=== PATIENT | male | born 1965 | race Caucasian/White ===

== ENCOUNTER → 2018-06-17 | Emergency (ER) | payer OTHER ==
[~2018-06-17] MED LIST: CADUET 10 MG/101 TAB; NABUMETONE500 MG PO; PERCOCET 5/3251 TAB PO
== END | disposition left against medical advice (07) ==
LOC: ER 18:51
DX: Z53.20 Procedure and treatment not carried out because of patient's decision for unspecified reasons (principal)

== ENCOUNTER 2019-03-08 14:16 | Outpatient (CLI) | payer OTHER | END 2019-03-08 14:25 | disposition home or self-care (01) | LOC: RAD 14:16 | DX: M25.561 Pain in right knee (principal); M25.562 Pain in left knee ==

== ENCOUNTER 2019-03-09 13:23 | Outpatient (CLI) | payer OTHER | END 2019-03-09 14:51 | disposition home or self-care (01) | LOC: RAD 13:23 | DX: R07.89 Other chest pain (principal) ==

== ENCOUNTER → 2019-03-17 12:03 | Outpatient (CLI) | payer OTHER | END | disposition home or self-care (01) | LOC: EKG 12:03 | DX: I10 Essential (primary) hypertension (principal) ==

== ENCOUNTER → 2021-03-18 | Emergency (ER) | payer OTHER ==
[~2021-03-18] VITALS: Ht 167.6 cm; Wt 72.6 kg
[~2021-03-18] MED LIST changes: +DIOVAN160 M1; +JANUVIA100 MG; +VYTORIN 10-401 EACH
== END | disposition home or self-care (01) ==
LOC: ER 17:45
DX: M79.672 Pain in left foot (principal)

== ENCOUNTER 2021-06-20 05:50 | Day surgery (SDC) | payer OTHER ==
[~2021-06-20 05:50] MED LIST changes: +NASAL MIST126 ML; +OMEPRAZOLE40 MG PO; +VALSARTAN160 MG PO
[2021-06-20] MEDS ORDERED: ULTRAM50 MG PO (09:52)
[2021-06-20] MEDS ORDERED: NEURONTIN600 M1 PO (09:53)
[2021-06-20] MEDS ORDERED: POLY119PG PO (09:53)
[2021-06-20] MEDS ORDERED: SURFAK240 M1 PO (09:53)
== END 2021-06-20 16:20 | disposition home or self-care (01) ==
LOC: CIR.AMB 05:50
PROVIDERS: ATTEND Surgery
DX: K40.20 Bilateral inguinal hernia, without obstruction or gangrene, not specified as recurrent (principal); K42.9 Umbilical hernia without obstruction or gangrene; Z20.822 Contact with and (suspected) exposure to COVID-19

== ENCOUNTER 2021-07-08 11:19 | Emergency (ER) | payer OTHER ==
[~2021-07-08] VITALS: Ht 167.6 cm; Wt 72.6 kg
[~2021-07-08 11:19] MED LIST changes: +NEURONTIN600 M1 PO; +POLY119PG PO; +SURFAK240 M1 PO; +ULTRAM50 MG PO
[2021-07-08] MEDS ORDERED: PYRIDIUM DS200 MG PO (16:12)
== END 2021-07-08 16:22 ==
LOC: ER 11:19
DX: N30.80 Other cystitis without hematuria (principal); R10.2 Pelvic and perineal pain

== ENCOUNTER 2021-10-12 09:14 | Emergency (ER) | payer OTHER ==
[~2021-10-12] VITALS: Ht 167.6 cm; Wt 72.6 kg
[~2021-10-12 09:14] MED LIST changes: +PYRIDIUM DS200 MG PO
== END 2021-10-12 12:36 | disposition home or self-care (01) ==
LOC: ER 09:14
DX: B34.9 Viral infection, unspecified (principal); Z20.822 Contact with and (suspected) exposure to COVID-19

== ENCOUNTER 2023-06-16 00:21 | Emergency (ER) | payer OTHER ==
[~2023-06-16] VITALS: Ht 167.6 cm; Wt 77.1 kg
[2023-06-16] MEDS ORDERED: ONDANSETRON ODT4 MG PO (07:31)
[2023-06-16] MEDS ORDERED: INTESTINEX680 M2 PO (07:31)
[2023-06-16] MEDS ORDERED: LEVSIN/SL0.125 MG SL (07:31)
[2023-06-16] MEDS ORDERED: PEPCID40 MG PO (07:31)
== END 2023-06-16 07:54 ==
LOC: ER 00:21
PROVIDERS: General Practice
DX: R10.33 Periumbilical pain (principal); E11.9 Type 2 diabetes mellitus without complications; I10 Essential (primary) hypertension; R19.7 Diarrhea, unspecified

== ENCOUNTER 2023-09-14 07:02 | Emergency (ER) | payer OTHER ==
[~2023-09-14] VITALS: Ht 165.1 cm; Wt 77.1 kg
[~2023-09-14 07:02] MED LIST changes: +INTESTINEX680 M2 PO; +LEVSIN/SL0.125 MG SL; +ONDANSETRON ODT4 MG PO; +PEPCID40 MG PO
== END 2023-09-14 09:01 | disposition home or self-care (01) ==
LOC: ER 07:03
DX: M25.511 Pain in right shoulder (principal)

== ENCOUNTER → 2023-09-24 | Emergency (ER) | payer OTHER ==
[~2023-09-24] VITALS: Ht 167.6 cm; Wt 77.1 kg
[~2023-09-24] MED LIST changes: +[UNRECOGNIZED DRUG - OTHER] PO
== END | disposition home or self-care (01) ==
LOC: ER 15:08
DX: N48.1 Balanitis (principal)

== ENCOUNTER 2024-09-10 16:43 | Emergency (ER) | payer OTHER ==
[~2024-09-10] VITALS: Ht 167.6 cm; Wt 74.8 kg
[~2024-09-10 16:43] MED LIST changes: +OMEPRAZOLE-BIC1 EAC1; +ZETIA10 MG
[2024-09-10] MEDS ORDERED: CLONIDINE HCL 0.1 MG TABLET PO STA (20:10)
== END 2024-09-10 22:04 | disposition home or self-care (01) ==
LOC: ER 16:45
DX: R53.81 Other malaise (principal); I10 Essential (primary) hypertension

== ENCOUNTER 2025-07-20 04:50 | Emergency (ER) | payer OTHER ==
[~2025-07-20] VITALS: Ht 167.6 cm; Wt 77.1 kg
[2025-07-20] MEDS ORDERED: EZALLOR SPRINKL10 MG PO (05:05)
[2025-07-20 05:06] VITALS: BP 142/85; O2SAT 96
[2025-07-20] MEDS ORDERED: KETOROLAC TROMETHAMINE 60 MG VIAL IM ONE ×2 (07:30)
== END 2025-07-20 07:44 | disposition home or self-care (01) ==
LOC: ER 04:50
DX: M54.2 Cervicalgia (principal); I10 Essential (primary) hypertension; E78.49 Other hyperlipidemia